=== PATIENT | female | born 2000 | race Caucasian/White ===

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

== ENCOUNTER → 2020-01-16 | Outpatient (CLI) | payer OTHER ==
[~2020-01-16] MED LIST changes: +OMEPRAZOLE40 MG PO; +TORADOL 10 MG T10 MG PO
== END ==
LOC: M.RAD 14:09
PROVIDERS: ATTEND Registered Nurse Diabetes Educator
DX: M54.6 Pain in thoracic spine (principal); G89.29 Other chronic pain; M54.5 Low back pain

== ENCOUNTER → 2020-02-09 | Outpatient (CLI) | payer OTHER ==
[~2020-02-09] MED LIST changes: +ABILIFY 2 MG2 M1 PO; +ALDACTONE100 MG PO; +BIRTH CONTROL PILL PO; +VENLAFAXINE HC225 MG PO
== END ==
LOC: M.MRI 13:11
PROVIDERS: ATTEND Registered Nurse Diabetes Educator
DX: M51.37 Other intervertebral disc degeneration, lumbosacral region (principal); M48.07 Spinal stenosis, lumbosacral region; M51.27 Other intervertebral disc displacement, lumbosacral region

== ENCOUNTER → 2020-03-08 | Outpatient (CLI) | payer OTHER | LOC: M.PC 10:30 | PROVIDERS: ATTEND Physical Medicine & Rehabilitation | DX: M51.37 Other intervertebral disc degeneration, lumbosacral region (principal); M47.816 Spondylosis without myelopathy or radiculopathy, lumbar region; M47.814 Spondylosis without myelopathy or radiculopathy, thoracic region ==